=== PATIENT | female | born 1955 | race Two or more races ===

== ENCOUNTER 2021-07-03 10:30 | Inpatient (IN) | payer OTHER ==
[~2021-07-03] VITALS: Ht 167.6 cm; Wt 48.1 kg
[2021-07-03] MEDS ORDERED: SINGULAIR10 MG PO (13:33)
[2021-07-03] MEDS ORDERED: PROTONIX40 MG PO (13:33)
[2021-07-03] MEDS ORDERED: PEPCID PO (13:34)
[2021-07-03] MEDS ORDERED: ACTONEL150 MG PO (13:34)
[2021-07-03] MEDS ORDERED: ALBUTERO IH (13:35)
[2021-07-09] MEDS ORDERED: FLONASE ALLERG9.9 ML (07:55)
[2021-07-09] MEDS ORDERED: PROAIR HFA8.5 GM (07:55)
[2021-07-09] MEDS ORDERED: LEVOCETIRIZINE D5 MG (07:55)
[2021-07-09] MEDS ORDERED: FAMOTIDINE20 MG (07:55)
[2021-07-11] MEDS ORDERED: PERCOCET 10-321 EACH PO (15:09)
[2021-07-11] MEDS ORDERED: CEFADROXIL500 MG PO (15:09)
[2021-07-11] MEDS ORDERED: ELIQUIS2.5 MG PO (15:09)
== END 2021-07-11 19:09 | DRG 470 ==
LOC: SURG 07-09 06:00 → O/R 07-09 06:00 → SURH 07-09 07:00 → O/R 07-09 09:08 → SURH 07-09 10:30 → SURG 07-09 11:16
PROVIDERS: ADMIT Orthopaedic Surgery; ATTEND Orthopaedic Surgery
PROC: 0SR90J9 Replacement of Right Hip Joint with Synthetic Substitute, Cemented, Open Approach (ICD-10-PCS; principal; 2021-07-09 07:00)
DX: M16.11 Unilateral primary osteoarthritis, right hip (principal); M70.61 Trochanteric bursitis, right hip; M25.751 Osteophyte, right hip; M81.0 Age-related osteoporosis without current pathological fracture; D50.0 Iron deficiency anemia secondary to blood loss (chronic); Z20.822 Contact with and (suspected) exposure to COVID-19